=== PATIENT | female | born 1995 | race Caucasian/White ===

== ENCOUNTER 2021-12-05 09:45 | Emergency (ER) | payer OTHER, SELFPAY ==
--- NOTE | ~2021-12-05 | CT_ITS ---
EXAMINATION: CT ABDOMEN AND PELVIS WITH CONTRAST CLINICAL INFORMATION: RLQ and R CVA tenderness COMPARISON: None. TECHNIQUE: Multidetector volumetric imaging was performed from the superior aspect of the liver through the pubic symphysis following administration of 95 mL Omnipaque 300 intravenous contrast. Sagittal and coronal reformatted images were obtained on the technologist workstation.. This CT examination was performed using dose optimization techniques as appropriate, variously including the following: *Automated exposure control *Adjustment of mA and/or kV according to patient size (this includes techniques or standardized protocols for targeted exams where dose is matched to indication/reason for exam; i.e. extremities or head) *Use of iterative reconstruction technique DLP: 504 mGy-cm FINDINGS: LUNG BASES: The visualized lung bases are unremarkable. LIVER, GALLBLADDER, AND BILIARY TREE: The liver is normal in size, shape, and attenuation. Tiny subcentimeter low-attenuation probable cyst in posterior right lobe the liver but no suspicious focal hepatic lesion or biliary ductal dilatation is present. The gallbladder is unremarkable with no evidence of radiopaque gallstones, gallbladder wall thickening, or obvious pericholecystic inflammatory changes. PANCREAS: Unremarkable. SPLEEN: Unremarkable. ADRENAL GLANDS: Unremarkable. KIDNEYS AND URETERS: The kidneys are normal in size, shape, and attenuation. No hydronephrosis, hydroureter, or calculi seen. No perinephric stranding. BLADDER: Unremarkable. GASTROINTESTINAL TRACT: The small and large bowel are unremarkable. The appendix is nonvisualized and presumably surgically absent. ABDOMINAL WALL: No significant hernia is appreciated. LYMPHOVASCULAR STRUCTURES: No lymphadenopathy. The aorta is unremarkable. PELVIC VISCERA: Anteroverted uterus. Free fluid is seen in the dependent pelvis likely physiologic in a patient this age. I do not appreciate any discrete loculated collection. Right adnexa is difficult to separate from fluid. OSSEOUS STRUCTURES: Unremarkable. CT/CT abdomen pelvis w con IMPRESSION: Dependent fluid in the pelvis more likely physiologic in a patient of this age. Right adnexa is difficult to separate from the adjacent structures in the setting of the fluid and no discrete adnexal mass appreciated. The appendix is not visualized and presumably surgically absent. No obstructive changes to the kidneys or ureters.
--- NOTE | ~2021-12-05 | US_ITS ---
EXAMINATION: US PELVIS CLINICAL INFORMATION: Right adnexal pain. COMPARISON: None TECHNIQUE: Ultrasound of the pelvis is performed using both transabdominal and transvaginal transducers along with Doppler. Transvaginal imaging is performed due to inadequate visualization transabdominally. FINDINGS: Uterus: A bicornate uterus is noted, anteverted and measures 7.93 cm in length, 5.09 mL in AP and 6.6 cm in transverse dimension. The double wall endometrial thickness is 1.34 cm on the right and 1.08 cm on the left. The uterus is smooth in contour and has normal myometrial echogenicity. No visible fibroid. There is a small nabothian cysts in the cervix measuring 1.2 cm. Adnexa: Both ovaries are visualized. There is normal color flow to the adnexa on Doppler exam. There is no ovarian torsion. There is no pelvic ascites or fluid collection. Right ovary measures 4.60 x 2.69 x 1.97 cm and volume 12.76 mL. There is minimal fluid seen adjacent to the right ovary. Left ovary measures 3.25 x 2.30 x 3.17 cm and volume 12.41 mL. There is small to moderate amount of fluid in the cul-de-sac. 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 No focal lesion seen. The ovaries unremarkable with small follicles. There is minimal fluid seen adjacent to the right ovary likely physiological. Minimal free fluid in the cul-de-sac.
--- NOTE | ~2021-12-05 | US_ITS ---
EXAMINATION: US PELVIS CLINICAL INFORMATION: Right adnexal pain. COMPARISON: None TECHNIQUE: Ultrasound of the pelvis is performed using both transabdominal and transvaginal transducers along with Doppler. Transvaginal imaging is performed due to inadequate visualization transabdominally. FINDINGS: Uterus: A bicornate uterus is noted, anteverted and measures 7.93 cm in length, 5.09 mL in AP and 6.6 cm in transverse dimension. The double wall endometrial thickness is 1.34 cm on the right and 1.08 cm on the left. The uterus is smooth in contour and has normal myometrial echogenicity. No visible fibroid. There is a small nabothian cysts in the cervix measuring 1.2 cm. Adnexa: Both ovaries are visualized. There is normal color flow to the adnexa on Doppler exam. There is no ovarian torsion. There is no pelvic ascites or fluid collection. Right ovary measures 4.60 x 2.69 x 1.97 cm and volume 12.76 mL. There is minimal fluid seen adjacent to the right ovary. Left ovary measures 3.25 x 2.30 x 3.17 cm and volume 12.41 mL. There is small to moderate amount of fluid in the cul-de-sac. 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 No focal lesion seen. The ovaries unremarkable with small follicles. There is minimal fluid seen adjacent to the right ovary likely physiological. Minimal free fluid in the cul-de-sac.
[2021-12-05 10:46] VITALS: BP 128/88; PULSE 75; RESP 18; TEMP 37.2; O2SAT 98; BMI 23.3
--- NOTE | 2021-12-05 11:21 | ED.ABDPAIN ---
HPI - Abdominal Pain General Chief Complaint: Abdominal Pain Stated Complaint: Abd pain Time Seen by Provider: 12/05/21 11:05 Source: patient Mode of arrival: ambulatory Limitations: no limitations History of Present Illness HPI narrative: 26-year-old female presents for right lower quadrant pain and right flank pain that started at 04:00 this morning. The pain has been constant, starts in her right lower quadrant radiates to her back. It is very sharp and stabbing pain, is a 10/10. She has been nauseous and then vomiting from the pain. She has not been able to eat. She had dysuria this morning, but no hematuria. Last menstrual period was November 15. Denies sexual activity. Denies fevers, denies vaginal discharge, denies diarrhea. Patient had a normal bowel movement yesterday. She has not taken any pain medication. She has not had any abdominal surgeries. She has been vaccinated and boosted with COVID. MD elicited complaint: abdominal pain and flank pain Pertinent past history: none Pain Consistency: constant Location: LLQ and R flank Severity: severe Quality: stabbing Radiation: R flank Migration to: no migration Exacerbating factors: movement Relieving factors: nothing Associated symptoms: nausea and vomiting Related Data Previous Rx's Medication Instructions Recorded ketorolac 10 mg tablet 10 mg PO TID 5 Days #15 tab 12/05/21 metronidazole 500 mg tablet 500 mg PO BID 7 Days #14 tab 12/05/21 ondansetron 4 mg disintegrating 4 mg PO Q8H PRN #9 tab 12/05/21 tablet Allergies Allergy/AdvReac Type Severity Reaction Status Date / Time No Known Allergies Allergy Unverified 12/05/21 11:24 [No Known Allergies*] Review of Systems Constitutional: Denies body ache(s), Denies chills, Denies fatigue, Denies fever(s), Denies headache(s), Denies malaise and Denies weakness Eyes: Denies diplopia Denies vertigo, Denies dizziness, Denies otalgia, Denies headache(s), Denies mouth pain, Denies post nasal drip, Denies sinus pain, Denies sinus pressure, Denies sore throat and Denies throat swelling Cardiovascular: Denies chest pain, Denies syncope, Denies leg edema, Denies lightheadedness, Denies Loss of Consciousness, Denies palpitations and Denies dyspnea Respiratory: Denies chest congestion, Denies cough and Denies dyspnea Gastrointestinal: Reports abdominal pain, Denies melena, Denies hematochezia, Denies constipation, Denies diarrhea, Reports nausea, Reports vomiting and Denies hematemesis Genitourinary: Denies hematuria, Reports dysuria, Denies pelvic pain, Reports flank pain, Denies urinary urgency, Denies vaginal discharge and Denies vaginal odor Musculoskeletal: Reports no additional musculoskeletal complaints Denies confusion, Denies vertigo, Denies dizziness, Denies syncope, Denies headache(s) and Denies weakness Psychiatric: Denies anxiety, Denies confusion and Denies depression Endocrine: Denies fatigue and Denies palpitations Allergic/Immunologic: Denies throat swelling PMFSH Past Medical History Medical History No known health problems Social History Social History Alcohol intake: never Patient Tobacco Use Status: Never used Tobacco Use of substances other than those prescribed or required for medical reasons: No Advance Directives: No Advance Directives Information Provided: No Physical Exam ED Vital Signs: Vital Signs - 24 hr 12/05/21 10:46 12/05/21 11:50 12/05/21 14:08 Temperature 98.9 F 98.9 F Pulse Rate 75 74 76 Respiratory Rate 18 16 18 Blood Pressure 128/88 127/93 H 109/72 Pulse Oximetry 98 99 100 12/05/21 15:37 Temperature 97.9 F Pulse Rate 67 Respiratory Rate 16 Blood Pressure 117/81 Pulse Oximetry 99 BMI result Body Mass Index 23.3 Const General: well developed, alert, awake and in distress (pain) moderate; No confusion Nutritional Appearance: average body habitus Orientation/consciousness: patient oriented x3 and No confusion Limitations: no limitations [facility] Head: Yes normal to inspection, Yes No palpable skull fracture present and Yes normocephalic Ears: hearing grossly normal bilaterally and external ears normal General nose exam: Normal external nose present Face and sinus: Yes normal facial exam Mouth: Normal oral and palatal mucosa present Throat: Yes posterior oropharynx normal Eyes Pupils: Equal, round and reactive pupils present EOM: EOMs intact bilaterally Neck Neck: Yes normal visual inspection, Yes full ROM, Yes no lymphadenopathy, Yes no meningeal signs, Yes trachea midline and Yes supple Chest Chest palpation & inspection: normal inspection of the chest Resp Effort & Inspection: normal respiratory effort and able to speak in complete sentences Auscultation: clear to auscultation bilaterally, no crackles, no rales, no rhonchi and no wheezes Cardio Rate: regular rate Rhythm: regular rhythm Heart sounds: S1 normal heart sound present and S2 normal heart sound present GI Inspection: Yes normal to inspection Palpation (GI): Soft to palpation, Tenderness to palpation present (GI) in the RLQ, in the RUQ, at McBurney's point and Rovsing's sign positive, Guarding due to palpation present (GI) in the RLQ and in the RUQ and not rigid Percussion: Yes normal to percussion Auscultation: normal bowel sounds Other: White milky discharge, no odor General: Yes CVA tenderness on the right External Female Exam: normal external appearance Speculum Exam - Vagina: normal appearance of the vagina Speculum Exam - Cervix: normal appearance of the cervix, normal palpation and Cervical os closed Bimanual exam- vagina & uterus: normal palpation and no cervical motion tenderness Bimanual Exam- Adnexa, other: tender on the right Back/Spine/Pelvis Back: CVA tenderness Skin General skin exam: no rashes or lesions noted Neuro General: patient oriented x3, no meningeal signs and No confusion Cranial nerves: Yes Equal, round and reactive pupils present Extrem General: Yes normal to inspection, Yes full ROM and Yes capillary refill normal Psych Appearance: grossly normal Mental Status: mental status grossly normal Speech and movement: Normal speech and movement present Affect: normal affect Course Course Course Narrative: 26-year-old female in obvious pain presents for right lower quadrant pain radiating to her right flank that started at 04:00 this morning. Also endorses dysuria that started this morning. On exam, patient has tenderness and guarding in her right upper quadrant, and severe tenderness and guarding in her right lower quadrant of her abdomen. Patient is tender in her right flank. Patient starts crying due to pain when I palpate her CVA tenderness. SHe had a positive Rovsing's sign. Will get labs, urine, will CT abdomen. Kidney stone versus appendicitis versus gallbladder pathology. Gave morphine, Zofran, fluids. Reevaluation(s) Reevaluation #1: Labs, including lipase are within normal limits. COVID negative. Urine shows no infection, patient not . Awaiting CT scan results. Reevaluation #2: CT/CT abdomen pelvis w con IMPRESSION: Dependent fluid in the pelvis more likely physiologic in a patient of this age. Right adnexa is difficult to separate from the adjacent structures in the setting of the fluid and no discrete adnexal mass appreciated. The appendix is not visualized and presumably surgically absent. No obstructive changes to the kidneys or ureters. As CT did not visualize appendix, I called [facility] and spoke to the radiologist. He stated that there was dependent fluid and the appendix may be sitting in that fluid, although that is where the right adnexa is. He could not visualize appendix. He did see that the terminal ileum looked okay. He thought it was possible that the appendix was buried in the fluid. I did bimanual exam with patient, patient has right adnexal tenderness, no cervical motion tenderness. On speculum exam patient had white milky discharge with no odor Ordered pelvic ultrasound Will test for gonorrhea, chlamydia, bacterial vaginosis, sally, and Trichomonas. Reevaluation #3: US of pelvis shows no ovarian torsion, no ovarian cyst or masses. Shows some endometrial thickening. Discussed with Dr Bal my concern of not being able to visualize appendix, he said we would see other inflammatory changes, and this was likely not appendicitis. Will treat presumptively for BV; told patient to call emergency room tomorrow for results of her cervical swabs. Will give Zofran, ketorolac for pain. Discussed with patient it is possible her pain is due to endometritis. Counseled f/u with PCP and with her [employer] PROBLEMS SPECIALIST Discussed with patient she must have a very low threshold to return to the emergency room, if she has any worsening pelvic pin, abdominal pain, or vomiting, she should return to ER. 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 No focal lesion seen. The ovaries unremarkable with small follicles. There is minimal fluid seen adjacent to the right ovary likely physiological. Minimal free fluid in the cul-de-sac. MDM - Abdominal Pain Lab Data Result diagrams: 12/05/21 11:46 12/05/21 11:46 Labs: Lab Results 12/05/21 12/05/21 12/05/21 Range/Units 11:46 11:46 11:46 WBC 9.3 (4.8-10.8) X10*3/uL RBC 4.68 (4.20-5.50) X10*6/uL Hgb 13.6 (12.0-16.0) g/dl Hct 40.5 (37.0-47.0) % MCV 86.5 (80.0-98.0) fL MCH 29.1 (27.0-33.0) pg MCHC 33.6 (31.0-35.0) g/dl RDW 12.7 (11.0-16.0) % Plt Count 265 (160-400) X10*3/uL MPV 9.6 (9.4-12.3) fL Immature Gran % (Auto) 0.4 (0.0-0.4) % Neut % (Auto) 72.2 (45-73) % Lymph % (Auto) 20.6 (20-40) % Mcnairy % (Auto) 6.0 (2-11) % Eos % (Auto) 0.5 (0-4) % Baso % (Auto) 0.3 (0-2) % Lymph # (Auto) 1.9 (1.2-4.9) X10*3/uL Mcnairy # (Auto) 0.6 (0.1-1.2) X10*3/uL Eos # (Auto) 0.1 (0.0-0.4) X10*3/uL Baso # (Auto) 0.0 (0.0-0.2) X10*3/uL Abs Immat Gran (auto) 0.04 H (0.00-0.03) X10*3/uL Absolute Neuts (auto) 6.7 (2.0-8.3) x10*3/uL Absolute Nucleated RBC 0.000 (0.0-0.012) X10*3/uL Nucleated RBC % (auto) 0.0 (0.0-0.2) /100WBC Sodium 137 (135-145) mmol/L Potassium 3.8 (3.3-5.1) mmol/L Chloride 106 (96-108) mmol/L Carbon Dioxide 25 (22-29) mmol/L Anion Gap 10 L (12-20) BUN 16 (9-16) mg/dL Creatinine 0.72 (0.5-1.4) mg/dL Estim Creat Clear Calc 101.3 Estimated GFR > 60 Random Glucose 89 (60-115) mg/dL Calcium 9.7 (8.4-10.2) mg/dL Total Bilirubin 0.8 (0.0-1.0) mg/dL AST 11 (5-31) U/L ALT 11 (0-31) U/L Alkaline Phosphatase 51 (39-117) U/L Total Protein 7.6 (6.5-8.0) g/dL Albumin 4.4 (3.5-5.0) g/dL Lipase 15 (8-78) U/L Urine Color Urine Appearance Urine pH (5.0-8.0) Ur Specific Franklin (1.005-1.025) Urine Protein (NEG-TRACE) MG/DL Urine Glucose (UA) (NEG) MG/DL Urine Ketones (NEG) MG/DL Urine Blood (NEG) Urine Nitrite (NEG) Ur Leukocyte Esterase (NEG) Urine RBC (0) /HPF Urine WBC (0-4) /HPF Ur Squamous Epith Cells /LPF Urine Bacteria /LPF Urine Mucus /LPF Urine Test NEGATIVE (NEGATIVE) COVID-19 (NEAL) (Negative) COVID-19 Clin Com 12/05/21 12/05/21 Range/Units 11:47 11:47 WBC (4.8-10.8) X10*3/uL RBC (4.20-5.50) X10*6/uL Hgb (12.0-16.0) g/dl Hct (37.0-47.0) % MCV (80.0-98.0) fL MCH (27.0-33.0) pg MCHC (31.0-35.0) g/dl RDW (11.0-16.0) % Plt Count (160-400) X10*3/uL MPV (9.4-12.3) fL Immature Gran % (Auto) (0.0-0.4) % Neut % (Auto) (45-73) % Lymph % (Auto) (20-40) % Mcnairy % (Auto) (2-11) % Eos % (Auto) (0-4) % Baso % (Auto) (0-2) % Lymph # (Auto) (1.2-4.9) X10*3/uL Mcnairy # (Auto) (0.1-1.2) X10*3/uL Eos # (Auto) (0.0-0.4) X10*3/uL Baso # (Auto) (0.0-0.2) X10*3/uL Abs Immat Gran (auto) (0.00-0.03) X10*3/uL Absolute Neuts (auto) (2.0-8.3) x10*3/uL Absolute Nucleated RBC (0.0-0.012) X10*3/uL Nucleated RBC % (auto) (0.0-0.2) /100WBC Sodium (135-145) mmol/L Potassium (3.3-5.1) mmol/L Chloride (96-108) mmol/L Carbon Dioxide (22-29) mmol/L Anion Gap (12-20) BUN (9-16) mg/dL Creatinine (0.5-1.4) mg/dL Estim Creat Clear Calc Estimated GFR Random Glucose (60-115) mg/dL Calcium (8.4-10.2) mg/dL Total Bilirubin (0.0-1.0) mg/dL AST (5-31) U/L ALT (0-31) U/L Alkaline Phosphatase (39-117) U/L Total Protein (6.5-8.0) g/dL Albumin (3.5-5.0) g/dL Lipase (8-78) U/L Urine Color YELLOW Urine Appearance CLEAR Urine pH 6.0 (5.0-8.0) Ur Specific Franklin >= 1.030 H (1.005-1.025) Urine Protein 1+ H (NEG-TRACE) MG/DL Urine Glucose (UA) NEG (NEG) MG/DL Urine Ketones NEG (NEG) MG/DL Urine Blood NEG (NEG) Urine Nitrite NEG (NEG) Ur Leukocyte Esterase NEG (NEG) Urine RBC 0-2 (0) /HPF Urine WBC 0-2 (0-4) /HPF Ur Squamous Epith Cells TRACE /LPF Urine Bacteria TRACE /LPF Urine Mucus 1+ /LPF Urine Test (NEGATIVE) COVID-19 (NEAL) Negative (Negative) COVID-19 Clin Com See Note Discharge Plan Discharge Clinical Impression: Abdominal pain, Endometriosis Patient Disposition: Home, Self-Care Instructions: Abdominal Pain (ED) Additional Instructions: Please call your primary care provider for follow-up appointment from today's more urgency room visit. I would like you to be seen within 3 days. You do have some mild endometrial thickening in your uterus that you should discuss with your primary care provider. As we talked about, this does not look like an appendicitis right now. However, if you have worsening abdominal pain, nausea, vomiting, you must return to emergency room. Please start metronidazole for bacterial vaginosis. Please call the hospital tomorrow for your cervical swab results. If all the results are negative you can stop the metronidazole. Please take Zofran as prescribed for nausea, it works better if you take it before we started vomiting. Please take ketorolac as prescribed foot pain for the next 5 days. Please note the ketorolac is similar to ibuprofen, do not take any ibuprofen containing products we take this medicine. Prescriptions: New metronidazole 500 mg tablet 500 mg PO BID 7 Days Qty: 14 0RF ketorolac 10 mg tablet 10 mg PO TID 5 Days Qty: 15 0RF ondansetron 4 mg tablet,disintegrating 4 mg PO Q8H PRN (Reason: nausea and vomiting) Qty: 9 0RF
[2021-12-05 11:50] VITALS: BP 127/93; PULSE 74; RESP 16; TEMP 37.2; O2SAT 99
[2021-12-05 11:55] LABS: MANUAL DIFF FLAG NO
[2021-12-05] MEDS: Morphine Sulfate 4 MG/ML CARTRIDGE IVPUSH (11:58)
[2021-12-05] MEDS: ondansetron HCL 4 MG/2 ML VIAL IVPUSH (11:58)
[2021-12-05] MEDS: 0.9 % Sodium Chloride 1,000 ML 999 ML IV (11:59)
--- NOTE | 2021-12-05 11:59 | PC.NURSE ---
iv inserted, labs drawn, pt medicated per order
[2021-12-05 12:00] LABS: Appearance Urine CLEAR; Color Urine YELLOW; Glucose Urine UA NEG (NEG); Leukocyte Esterase Urine NEG (NEG); Nitrite Urine NEG (NEG); Specific Gravity - Urine >= 1.030 (1.005-1.025); UACC Culture Trigger NO; Urine Blood NEG (NEG); Urine Ketones NEG (NEG); Urine Protein 1+ MG/DL (NEG-TRACE)
[2021-12-05 12:00] LABS: Basophils Percent Auto 0.3 % (0-2); Eosinophils Absolute Auto 0.1 X10*3/uL (0.0-0.4); Eosinophils Percent Auto 0.5 % (0-4); Hematocrit 40.5 % (37.0-47.0); Hemoglobin 13.6 g/dl (12.0-16.0); Imm Gran Abs Auto 0.04 X10*3/uL (0.00-0.03); Imm Gran Pct Auto 0.4 % (0.0-0.4); Lymphocytes Absolute Auto 1.9 X10*3/uL (1.2-4.9); Lymphocytes Percent Auto 20.6 % (20-40); Mean Corpuscular HGB Conc 33.6 g/dl (31.0-35.0); Mean Corpuscular Hemoglobin 29.1 pg (27.0-33.0); Mean Corpuscular Volume 86.5 fL (80.0-98.0); Mean Platelet Volume 9.6 fL (9.4-12.3); Monocytes Absolute Auto 0.6 X10*3/uL (0.1-1.2); Neutrophils Absolute Auto 6.7 x10*3/uL (2.0-8.3); Neutrophils Percent Auto 72.2 % (45-73); Platelet Count 265 X10*3/uL (160-400); Red Blood Count 4.68 X10*6/uL (4.20-5.50); Red Cell Distribution Width 12.7 % (11.0-16.0); White Blood Count 9.3 X10*3/uL (4.8-10.8)
[2021-12-05 12:04] LABS: UPreg QC Valid YES; Urine Pregnancy NEGATIVE (NEGATIVE)
[2021-12-05 12:15] LABS: Alanine Aminotransferase 11 U/L (0-31); Albumin Level 4.4 g/dL (3.5-5.0); Alkaline Phosphatase 51 U/L (39-117); Anion Gap 10 (12-20); Aspartate Amino Transferase 11 U/L (5-31); Bilirubin Total 0.8 mg/dL (0.0-1.0); Blood Urea Nitrogen 16 mg/dL (9-16); Calcium 9.7 mg/dL (8.4-10.2); Carbon Dioxide 25 mmol/L (22-29); Chloride 106 mmol/L (96-108); Creatinine Clr Calc Pharmacy 101.3; Estimated Glomerular Filt Rate > 60; Glucose Random 89 mg/dL (60-115); Lipase 15 U/L (8-78); Potassium 3.8 mmol/L (3.3-5.1); Sodium 137 mmol/L (135-145); Total Protein 7.6 g/dL (6.5-8.0)
[2021-12-05 12:21] LABS: COVID-19 Test Negative (Negative); IDNOW Serial# 55D5AD1C
[2021-12-05 12:31] LABS: Bacteria Urine TRACE /LPF; Mucus Urine 1+ /LPF; RBC Urine 0-2 /HPF (0); Squamous Epithelial Cell Urine TRACE /LPF; WBC Urine 0-2 /HPF (0-4)
[2021-12-05] MEDS: Morphine Sulfate 2 MG/ML CARTRIDGE IVPUSH (13:21)
--- NOTE | 2021-12-05 13:22 | PC.NURSE ---
pt returned from radiology, medicated for 6/10 abd pain, will continue to monitor.
[2021-12-05] MEDS: iohexoL 350 MG/ML 100 ML INFUS..BTL IV (13:44)
[2021-12-05 14:08] VITALS: BP 109/72; PULSE 76; RESP 18; O2SAT 100
[2021-12-05 15:37] VITALS: BP 117/81; PULSE 67; RESP 16; TEMP 36.6; O2SAT 99
--- NOTE | 2021-12-05 15:39 | PC.NURSE ---
pt a&ox3, reporting 8/10 pain, pelvic exam and swabs obtained by provider, vss, mother in room and present for pelvic exam, will continue to monitor.
[2021-12-05] MEDS: Ketorolac Tromethamine 15 MG/ML VIAL IVPUSH (15:47)
--- NOTE | 2021-12-05 15:48 | PC.NURSE ---
pt medicated for pain per order
[2021-12-06 13:52] LABS: CT PCR DETECTED (Not Detect.); NG PCR NOT DETECTED (Not Detect.)
[2021-12-07 08:45] LABS: BV Int Neg Control Negative (Negative); BV Int Pos Control Positive (Positive)
== END 2021-12-05 17:38 | disposition home or self-care (01) ==
PROVIDERS: Physician Assistant; Emergency Provider Emergency Medicine
DX: R10.9 Unspecified abdominal pain (principal); N80.0 Endometriosis of uterus; Z20.822 Contact with and (suspected) exposure to COVID-19
CPT/HCPCS: 74177; 76830; 76856; 80053; 81001; 81003; 81025; 83690; 85025; 87480; 87491; 87510; 87591; 87635; 87660; 93975; 96361; 96374; 96375; 96376; 99284; 99285; J1885; J2270; J2405; Q9967

== ENCOUNTER 2023-07-18 23:01 | Emergency (ER) | payer OTHER, SELFPAY ==
[2023-07-18 23:05] VITALS: BP 162/96; PULSE 121; RESP 20; TEMP 36.4; O2SAT 98; BMI 27.5
[2023-07-18] MEDS: Ondansetron ODT 4 MG TAB.RAPDIS TRANSLINGU (23:14)
[2023-07-18 23:30] LABS: MANUAL DIFF FLAG NO
[2023-07-18 23:31] LABS: Basophils Percent Auto 0.3 % (0-2); Eosinophils Absolute Auto 0.2 X10*3/uL (0.0-0.4); Eosinophils Percent Auto 1.1 % (0-4); Hematocrit 40.8 % (37.0-47.0); Hemoglobin 14.3 g/dl (12.0-16.0); Imm Gran Abs Auto 0.05 X10*3/uL (0.00-0.03); Imm Gran Pct Auto 0.4 % (0.0-0.4); Lymphocytes Absolute Auto 3.6 X10*3/uL (1.2-4.9); Lymphocytes Percent Auto 25.9 % (20-40); Mean Corpuscular Hemoglobin 28.9 pg (27.0-33.0); Mean Corpuscular Volume 82.6 fL (80.0-98.0); Mean Platelet Volume 9.3 fL (9.4-12.3); Monocytes Absolute Auto 0.9 X10*3/uL (0.1-1.2); Monocytes Percent Auto 6.3 % (2-11); Neutrophils Absolute Auto 9.3 x10*3/uL (2.0-8.3); Platelet Count 304 X10*3/uL (160-400); Red Blood Count 4.94 X10*6/uL (4.20-5.50); Red Cell Distribution Width 11.9 % (11.0-16.0); White Blood Count 14.1 X10*3/uL (4.8-10.8)
[2023-07-18 23:32] LABS: UPreg QC Valid YES; Urine Pregnancy NEGATIVE (NEGATIVE)
[2023-07-18 23:32] LABS: Appearance Urine Clear; Color Urine Yellow; Glucose Urine UA Negative (Negative); Leukocyte Esterase Urine Negative (Negative); Nitrite Urine Negative (Negative); UMIC TRIGGER UACC YES; Urine Blood Trace (Negative); Urine Ketones Negative (Negative); Urine Protein 100 (2+) mg/dL (Neg-Trace)
[2023-07-18 23:34] LABS: Bacteria Urine None Seen (None Seen); Hyaline Casts Urine 0-2 /LPF (0-2); Squamous Epithelial Cell Urine 0-2 /HPF (0-2); WBC Urine 0-5 /HPF (0-5)
[2023-07-18 23:43] LABS: Anion Gap 20 (12-20); Blood Urea Nitrogen 13 mg/dL (9-16); Carbon Dioxide 17 mmol/L (22-29); Chloride 108 mmol/L (96-108); Creatinine Clr Calc Pharmacy 102.5; Estimated Glomerular Filt Rate > 60; Glucose Random 108 mg/dL (60-115); Potassium 3.3 mmol/L (3.3-5.1); Sodium 142 mmol/L (135-145)
== END 2023-07-19 00:52 | disposition left against medical advice (07) ==
PROVIDERS: Emergency Provider Emergency Medicine
DX: R10.9 Unspecified abdominal pain (principal); Z79.899 Other long term (current) drug therapy
CPT/HCPCS: 36415; 80048; 81001; 81025; 85025; 99282; 99283